=== PATIENT | female | born 1945 | race Caucasian/White ===

== ENCOUNTER 2020-04-11 14:14 | Emergency (ER) | payer MEDICARE, SELFPAY ==
[2020-04-11 14:15] VITALS: BP 131/77; PULSE 84; RESP 14; TEMP 36.3; O2SAT 96; BMI 26.3
[2020-04-11 14:44] VITALS: O2SAT 90; O2SAT 98
--- NOTE | 2020-04-11 14:50 | EKG12_ITS ---
Test Reason : SOB Blood Pressure : / mmHG Vent. Rate : 079 BPM Atrial Rate : 079 BPM P-R Int : 174 ms QRS Dur : 076 ms QT Int : 396 ms P-R-T Axes : 065 -12 003 degrees QTc Int : 454 ms Normal sinus rhythm Normal ECG Confirmed by REBEKA VANEGAS, JUAN ([id number]), supervising film or videotape editor NICHOLE CHEN ([id number]) on 04/16/2020 9:53:20 A M Referred By: TAMRA Confirmed By:LUCI STALEY MD
[2020-04-11 15:13] LABS: Absolute Lymphocyte Count 1.47 X10^3/uL (0.83-4.51); Absolute Neutrophil Count 7.1 X10^3/uL (2.0-7.7); Basophil# 0.06 X10^3/uL; Basophil% 0.6 % (0-1); Hematocrit 33.8 % (37-47); Hemoglobin 10.9 g/dL (12.0-15.0); Lymphocyte # 1.47 X10^3/ul (4.0); Lymphocyte % 14.3 % (19-41); Mean Corp Hgb Conc 32.2 g/dL (32-36); Mean Corpuscular Hgb 30.2 pg (27.0-32.0); Mean Corpuscular Volume 93.6 fL (81-99); Monocyte# 1.18 X10^3/uL; Monocyte% 11.5 % (0-10); NRBC Flagged by Analyzer 0 % (0-5); Neutrophil # 7.09 X10^3/uL (2.7-7.7); Neutrophil % 68.8 % (47-70); Platelet Count 426 K/mm3 (150-450); RBC Distribution Width CV 12.4 % (11.6-14.6); RBC Distribution Width SD 43.2 fl (35.1-43.9); Red Blood Count 3.61 M/mm3 (4.2-5.4); White Blood Count 10.3 K/mm3 (4.4-11.0)
--- NOTE | 2020-04-11 15:23 | ED.DCSUM_ITS ---
History of Present Illness <Fercho Juarez - Last Filed: 04/11/20 15:46> Informant: Patient Onset: Yesterday Activity at onset: Exertion, Light Activity, Rest Timing: Continuous Quality: Dyspnea on exertion Current Severity: Moderate Maximum Severity: Severe Worsened by: Exertion Relieved by: Oxygen Associated Symptoms: Clear sputum, Cough. Negative for: Bloody Sputum, Chills, Ear pain, Fever, Green sputum, Post-nasal drainage, Rhinorrhea, Sore throat, Sweats, White sputum, Yellow sputum Chest Pain: None Narrative: 74-year-old female history of diabetes and high blood pressure and high cholesterol and sleep apnea presents to the emergency department with shortness of breath. She has progressively gotten more short of breath over the last 3 days. She states that she was exposed to Covid about 3 weeks ago. She has not had a fever. She has not had chest pain or cough. No hemoptysis. No leg pain or swelling. No orthopnea. No paroxysmal nocturnal dyspnea. She has been checking her pulse ox at home and states today was 90% which prompted her visit to the emergency department. PE Risk Factors: Negative for: Cancer, OCP + Smoking + > 35, Prior DVT or PE, Recent immobilization, Recent surgery, Recent travel Prior similar symptoms: No Recent Illness/Hospitalization: No <Juan J Reeves - Last Filed: 04/11/20 16:42> Chief Complaint: Shortness of Breath Past Medical History <Fercho Juarez - Last Filed: 04/11/20 15:46> Prior records reviewed: Yes Past Medical History: - - HTN, HPL, LUPE, Surgical History: arthroscopy, knee Smoking Status: Unknown if ever smoked <Juan J Reeves - Last Filed: 04/11/20 16:42> - Allergies and Home Meds Allergies/Adverse Reactions: Allergies oxycodone Allergy (Verified 04/11/20 14:18) Rash Review of Systems All systems negative except as indicated General: Reports: Malaise. Denies: Chills, Fever, Sweats Eyes: Denies: Visual changes - bilaterally, Diplopia ENT: Denies: Rhinorrhea, Sore throat Cardiovascular: Denies: Chest pain, Palpitations Respiratory: Reports: Dyspnea, Cough, Sputum, Dyspnea on exertion. Denies: Orthopnea, Paroxysmal nocturnal dyspnea Gastrointestinal: Reports: Diarrhea. Denies: Abdominal pain, Nausea, Vomiting, Constipation, Melena, Hematochezia Genitourinary: Denies: Dysuria, Hematuria, Frequency Musculoskeletal: Denies: Back pain, Extremity Pain Skin: Denies: Rash, Wounds Neurological: Denies: Headache, Weakness, Numbness <Juan J Reeves - Last Filed: 04/11/20 16:42> Physical Exam Vital Signs/Narrative: Vital Signs Temp Pulse Resp BP Pulse Ox 04/11/20 14:44 98 04/11/20 14:15 97.4 F L 84 14 131/77 H 96 <Fercho Juarez - Last Filed: 04/11/20 15:46> Vital Signs/Narrative: Vital Signs Temp Pulse Resp BP Pulse Ox 04/11/20 14:44 98 04/11/20 14:15 97.4 F L 84 14 131/77 H 96 Inital Vital Signs reviewed: Yes General: Well nourished, Well developed, No Acute Distress Head: Normocephalic, Atraumatic Eyes: Perrl, EOMI ENT: Moist mucous membranes, No rhinorrhea Neck: Supple, Nontender Cardiovascular: Regular rate, Regular rhythm, No murmurs Respiratory: No distress, CTA bilaterally, Chest nontender Abdomen: Soft, Nontender, Nondistended, Normal bowel sounds Back: Nontender, Normal Inspection Extremities: Nontender, No edema Skin: Normal color, No rash Neurological: Alert, Oriented x3, Cranial nerves II-XII grossly intact, Normal Strength, Normal Sensation Psychological: Normal affect, Normal Mood <Juan J Reeves - Last Filed: 04/11/20 16:42> Diagnostic/Tx/Re-eval - Medical Decision Making 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 Patient complaining of shortness of breath and cough. She was exposed to someone with Covid about 3 weeks ago. Been having a cough and shortness of breath last several days. Recent travel, surgery or immobilization. No leg pain or swelling. No hemoptysis. She did have a prior PE when she was on hormone replacement th . Vital signs are stable and afebrile. Pulse ox is in the mid to high 90s. No hypoxia. HEENT exam unremarkable. Neck nontender no JVD. Lungs clear to auscultation bilaterally. Heart regular rhythm no murmur. Abdomen soft. Moving all 4 extremities. Calves nontender without edema or cords. Neurologically she is awake alert with no focal motor deficits. Labs basically unremarkable. She has mild renal insufficiency. She also has mild anemia. No old labs available for comparison. We checked both our system and the clinisync. Dust x-ray is consistent with a right sided infiltrate that could either be pneumonia or Covid. Patient clinically does look well. Currently lying in bed she is nonhypoxic. My concern is her age with the Covid. We are waiting for the Covid test. I will reevaluate her and walk her. <Fercho Juarez - Last Filed: 04/11/20 15:46> Chest X-Ray - ED: 1 View, Read by ED Physician, Read by Radiologist, Right Infiltrate, Left Infiltrate Impressions Chest X-Ray 04/11/20 15:25 IMPRESSION: Infiltration in the lateral aspect of the right upper lobe as well as in the right perihilar region. Subtle infiltrate is seen in the lateral aspect of the left mid lung. The right hilum appears to be enlarged. Correlation with a CT scan of the thorax is recommended if clinically indicated. Electronically Signed: Cabrera Toro, at 15:46 EST , Service support , 04/11/20 15:25 Chest 1 View (Portable) [RAD] Stat 04/11/20 15:50 CTA Chest W/WO Contrast [CT] Stat 04/11/20 14:55 Mucosa - Nose SARS-CoV-2 Antigen (Rapid) - Final Laboratory Results 04/11/20 04/11/20 14:55 14:55 WBC 10.3 RBC 3.61 L Hgb 10.9 L Hct 33.8 L MCV 93.6 MCH 30.2 MCHC 32.2 RDW Std Deviation 43.2 RDW Coeff of Flora 12.4 Plt Count 426 MPV 10.0 Immature Gran % (Auto) 3.800 H Neut % (Auto) 68.8 Lymph % (Auto) 14.3 L [place] % (Auto) 11.5 H Eos % (Auto) 1.0 Baso % (Auto) 0.6 Absolute Neuts (auto) 7.1 Absolute Lymphs (auto) 1.47 Nucleated RBC % 0 Sodium 134 L Potassium 4.1 Chloride 101 Carbon Dioxide 28.0 Anion Gap 5 BUN 23 H Creatinine 1.39 H Estim Creat Clear Calc 33.24 Est GFR (MDRD) Af Amer 48 L Est GFR (MDRD) Non-Af 39 L BUN/Creatinine Ratio 16.5 Glucose 91 Calcium 9.1 Troponin I < 0.015 - Rhythm Strip Rhythm Strip: Sinus Rhythm Rate: 88 Ectopy: None - EKG Initial EKG Interpretation: Sinus Rhythm, No Acute Injury Pattern Prior: No Prior Treatment - Dyspnea: Oxygen - Medical Decision Making Patient's chest x-ray demonstrated Infiltration in the lateral aspect of the right upper lobe as well as in the right perihilar region. Subtle infiltrate is seen in the lateral aspect of the left mid lung. The right hilum appears to be enlarged. Correlation with a CT scan of the thorax is recommended if clinically indicated. I went in to reevaluate the patient she is stable on 2 L of oxygen nasal cannula. Her rapid Covid was negative but we had a high suspicion therefore we did perform another test that was a PCR. This is pending. I discussed with her the findings of the x-ray and we ordered a CTA of the chest because she also has a history of a pulmonary embolism. Prior to the patient being taken over for the CT scan she informed me and the nurse that she would like to sign out AGAINST MEDICAL ADVICE and leave. She states that she feels improved she does not want to be admitted to the hospital she does not want the CT scan and would like to be discharged. We did start her on Levaquin for her pneumonia she was given her first dose in the ED and I will write her prescription. I explained to her the risks and benefits of this decision and I was concerned for her again as she may have Covid, and/or pneumonia. She is requiring oxygen. We took her off the nasal cannula she is at 90% she has the capacity to sign out AGAINST MEDICAL ADVICE and she understands the risks. <Juan J Reeves - Last Filed: 04/11/20 16:42> ED Disposition <Fercho Juarez - Last Filed: 04/11/20 15:46> <Juan J Reeves - Last Filed: 04/11/20 16:42> - Plan for ED Patient: Disposition: Against Medical Advice Diagnosis: Pneumonia Instructions: ED Pneumonia (Adult) Prescriptions: levoFLOXacin tablet [Levaquin tablet] 750 mg PO DAILY #7 tab Prescription Printed Ondansetron [Zofran Odt] 4 mg PO Q8H PRN PRN #10 tab PRN Reason: Nausea Prescription Printed Referrals: ANKUSH COOPER [Other] - As soon as possible
--- NOTE | 2020-04-11 15:25 | RAD_ITS ---
STUDY: X-RAY CHEST REASON FOR EXAM: Female, 74 years old. SOB and amp; COUGH X1 MONTH. TECHNIQUE: Single AP portable view of the chest. COMPARISON: None. FINDINGS: EKG electrodes are seen. Focal infiltrate is seen in the peripheral lateral aspect of the right upper lobe. A focal infiltrate is also seen in the right perihilar region as well as in the mid lateral portion of the left lung. There is no demonstrated pleural abnormality. Normal size heart. Questionable enlargement of the right hilum. Normal visualized pulmonary arteries. Normal visualized aortic arch and descending thoracic aorta. Normal visualized thoracic spine. Normal visualized ribs, clavicles, and shoulders. There is no demonstrated abnormality of the visualized soft tissue structures of the upper abdomen. RAD/Chest 1 View (Portable) IMPRESSION: Infiltration in the lateral aspect of the right upper lobe as well as in the right perihilar region. Subtle infiltrate is seen in the lateral aspect of the left mid lung. The right hilum appears to be enlarged. Correlation with a CT scan of the thorax is recommended if clinically indicated. Electronically Signed: Cabrera Engel, at 15:46 EST , Service support ,
[2020-04-11 15:32] LABS: Anion Gap 5 (5-15); BUN 23 mg/dL (7-18); BUN/Creat Ratio 16.5 RATIO (10-20); Calcium,Total 9.1 mg/dL (8.5-10.1); Chloride 101 mmol/L (98-107); Creatinine, Serum 1.39 mg/dL (0.55-1.02); EST Glomerular Filtration Rate 39 mL/min (>60); Est Glom Filt Rate - Afr Amer 48 mL/min (>60); Estimated Creatinine Clearance 33.24 ml/min; Glucose 91 mg/dL (74-106); Potassium 4.1 mmol/L (3.5-5.1); Sodium Level 134 mmol/L (136-145)
[2020-04-11 16:15] VITALS: BP 120/97; PULSE 78; RESP 18; TEMP 36.8; O2SAT 94
[2020-04-11] MEDS: 0.9% Normal Saline 1,000 ML 999 ML IV (16:18)
[2020-04-11] MEDS: levoFLOXacin 750 MG Tablet PO (16:48)
[2020-04-11 16:49] VITALS: PULSE 78; RESP 18; O2SAT 96
== END 2020-04-11 16:53 | disposition left against medical advice (07) ==
PROVIDERS: Emergency Provider Physician Assistant Medical
DX: J18.9 Pneumonia, unspecified organism (principal)
CPT/HCPCS: 71045; 80048; 84484; 85025; 87426; 87635; 93005; 99285; J7040; A4216; U0002

== ENCOUNTER → 2020-07-23 13:26 | Outpatient (CLI) | payer MEDICARE, SELFPAY ==
--- NOTE | 2020-07-23 13:47 | ECHOD_ITS ---
Reason For Study: Systolic murmur Procedure This was a 2D Doppler, Color Flow transthoracic echocardiogram. The exam was of adequate technical quality. Exam performed in department. Left Ventricle Normal LV size. Apical false tendon noted. Left ventricular systolic function is normal. The estimated ejection fraction is 65 %. Diastolic function is indeterminate. No regional wall motion abnormalities noted. Right Ventricle Normal RV size. Normal systolic function. Atria The left atrium is moderately enlarged. Normal right atrium. No doppler evidence for ASD. Mitral Valve There is mild to moderate mitral annular calcification. Extension of the mitral annular calcification onto the base of the posterior mitral valve leaflet. Moderate (2+) eccentric mitral valve insufficiency. Tricuspid Valve Normal tricuspid valve. Mild tricuspid valve insufficiency. Right ventricular systolic pressure estimated to be 27 mmHg. Aortic Valve Trisinus/trileaflet aortic valve. Mild diffuse aortic valve thickening. Moderate focal aortic valve calcification. Mild aortic stenosis. Pulmonic Valve The pulmonic valve is not well visualized. Trivial pulmonic valve insufficiency. Great Vessels Normal sized aortic root. Calcified aortic root. Pericardium/Pleural No pericardial effusion. MMode/2D Measurements & Calculations LVIDd: 3.6 cm IVSd: 1.2 cm LVOT diam: 2.0 cm LVIDs: 2.3 cm LVPWd: 1.1 cm LVOT area: 3.2 cm2 RVDd: 3.2 cm FS: 34.2 % Ao root diam: 2.8 cm LAV(MOD-bp): 52.5 ml LA A4 area: 19.3 cm2 LAV(MOD-bp) Indexed: 28.3 ml/m2 LAV(MOD-sp2): 46.2 ml LAV(MOD-sp4): 55.5 ml LA dimension(2D): 3.3 cm RA A4 area: 12.7 cm2 Doppler Measurements & Calculations MV E max joce: 82.6 cm/sec Lat Peak E' Joce: 6.1 cm/sec Med Peak E' Joce: 3.6 cm/sec MV A max joce: 104.7 cm/sec E/E' lat: 13.4 E/E' med: 22.8 MV E/A: 0.79 Ao V2 max: 233.3 cm/sec LV V1 max: 108.4 cm/sec SV(LVOT): 63.6 ml Ao max P.9 mmHg LV V1 max P.7 mmHg Ao V2 mean: 156.4 cm/sec LV V1 mean P.3 mmHg Ao mean P.0 mmHg LV V1 mean: 71.7 cm/sec Ao V2 VTI: 42.4 cm LV V1 VTI: 20.1 cm HAMILTON(I,D): 1.5 cm2 HAMILTON(V,D): 1.5 cm2 PA V2 max: 112.5 cm/sec TR max joce: 246.4 cm/sec TR max P.3 mmHg ECHO/Echo Complete Interpretation Summary Left ventricular systolic function is normal. The estimated ejection fraction is 65 %. Apical false tendon noted. The left atrium is moderately enlarged. There is mild to moderate mitral annular calcification. Extension of the mitral annular calcification onto the base of the posterior mi tral valve leaflet. Moderate (2+) eccentric mitral valve insufficiency. Mild tricuspid valve insufficiency. Mild aortic stenosis. Trivial pulmonic valve insufficiency. Calcified aortic root. Right ventricular systolic pressure estimated to be 27 mmHg. Diastolic function is indeterminate. Ordering Physician: ANKUSH COOPER Referring Physician: ANKUSH COOPER Performed By: Monique Vaz RDCS
[2020-07-23 14:18] LABS: Hematocrit 38.8 % (37-47); Hemoglobin 12.6 g/dL (12.0-15.0); Mean Corp Hgb Conc 32.5 g/dL (32-36); Mean Corpuscular Hgb 31.1 pg (27.0-32.0); Mean Corpuscular Volume 95.8 fL (81-99); Platelet Count 315 K/mm3 (150-450); RBC Distribution Width SD 45.6 fl (35.1-43.9); Red Blood Count 4.05 M/mm3 (4.2-5.4); White Blood Count 6.8 K/mm3 (4.4-11.0)
[2020-07-23 14:47] LABS: ALB/GLOB Ratio 0.9 RATIO (0.9-2.4); AST(SGOT) 16 U/L (15-37); Alanine Aminotransfer ALT/SGPT 22 U/L (13-56); Albumin, Serum 3.5 g/dL (3.2-5.0); Alkaline Phosphatase 99 U/L (45-117); Anion Gap 5 (5-15); BUN 28 mg/dL (7-18); BUN/Creat Ratio 20.1 RATIO (10-20); Calcium,Total 9.3 mg/dL (8.5-10.1); Chloride 100 mmol/L (98-107); Creatinine, Serum 1.39 mg/dL (0.55-1.02); EST Glomerular Filtration Rate 39 mL/min (>60); Est Glom Filt Rate - Afr Amer 48 mL/min (>60); Glucose 130 mg/dL (74-106); Phosphorus 4.2 mg/dL (2.5-4.9); Potassium 3.7 mmol/L (3.5-5.1); Protein, Total 7.5 g/dL (6.4-8.2); Sodium Level 135 mmol/L (136-145)
--- NOTE | 2020-07-23 14:47 | BI_ITS ---
MAMMOGRAPHY - BILATERAL SCREENING REASON FOR EXAM: Female, 74 years old. Routine annual screening examination. PERTINENT HISTORY: Non-contributory. TECHNIQUE: Digital bilateral breast jamey (3D mammographic acquisition) in the CC and MLO projections. 2-D mediolateral oblique (MLO) and craniocaudad (CC) views of both breasts were obtained. CAD: Full Field Digital Mammography with Computer Added Detection was performed. COMPARISON: Comparison is made with prior abdomen examination dated 08/30/2017. FINDINGS: Breast Composition: The breasts are heterogeneously dense, which may obscure small masses. There are no dominant masses or suspicious calcifications. Stable benign-appearing bilateral axillary lymph nodes. No other significant abnormalities are identified. There has been no significant change since the prior study. BI/SCRN MAMM (CAD)W/JAMEY BILAT IMPRESSION: Stable bilateral screening mammogram. Yearly follow-up mammogram recommended. (A) ASSESSMENT CATEGORY: BIRADS Category 2: Benign. A letter regarding these results will be sent to the patient by the facility within 30 days. Approximately 10% of breast cancers are not detected by mammography. A normal mammogram should not delay biopsy of a clinically suspicious abnormality. [id number] Electronically Signed: Cabrera Engel MD at 8:30 EDT , Service support ,
[2020-07-23 15:01] LABS: PTHIN 131.9 pg/mL (18.4-80.1)
[2020-07-23 15:05] LABS: Vitamin D,25 Hydroxy 38.4 ng/mL
== END ==
DX: I38 Endocarditis, valve unspecified (principal); I12.9 Hypertensive chronic kidney disease with stage 1 through stage 4 chronic kidney disease, or unspecified chronic kidney disease; N18.32 Chronic kidney disease, stage 3b; Z12.31 Encounter for screening mammogram for malignant neoplasm of breast
CPT/HCPCS: 36415; 77063; 77067; 80053; 82306; 83970; 84100; 85027; 93306

== ENCOUNTER 2023-09-26 14:36 | Emergency (ER) | payer MEDICARE, SELFPAY ==
[2023-09-26 14:37] VITALS: BP 118/79; PULSE 130; RESP 16; TEMP 37.1; O2SAT 94
[2023-09-26 14:39] VITALS: BMI 23.3
--- NOTE | 2023-09-26 14:55 | CT_ITS ---
STUDY: CT BRAIN WITHOUT CONTRAST REASON FOR EXAM: Female, 77 years old. One week history of headaches, dizziness and blurred vision. RADIATION DOSAGE (If Supplied By Facility): CTDIvol = ( 44.99 ) mGy, DLP = ( 796.11 ) mGycm TECHNIQUE: Transaxial CT imaging of the brain was performed without administration of intravenous contrast material. Individualized dose optimization techniques were used for this CT. COMPARISON: No relevant priors. FINDINGS: Normal soft tissue structures. Normal calvarium. There is mild cerebral atrophy with widening of the extra-axial spaces and ventricular dilatation. There are areas of decreased attenuation within the white matter tracts of the supratentorial brain, consistent with microvascular disease changes. There is evidence of encephalomalacia in the posterior medial aspect of the right occipital lobe infarct with old infarction. Old lacunar infarct in the right basal ganglion. Normal brainstem. Normal cerebellum. There is no intracranial hemorrhage. There are no findings of an acute ischemic infarction. Atherosclerotic calcification of the cavernous portions of the internal carotid arteries and vertebral arteries bilaterally. Normal visualized paranasal sinuses. CT/Brain/Head without Contrast IMPRESSION: Chronic involutional changes of the brain. Findings suggestive of encephalomalacia in the posterior medial aspect of the right occipital lobe as well as old lacunar infarct in the right basal ganglia. Electronically Signed: Cabrera Engel MD at 15:27 EDT ,
--- NOTE | 2023-09-26 15:03 | EDS_ITS ---
HPI History of Present Illness Chief Complaint: Headache Narrative Narrative: 77-year-old female past medical history of atrial fibrillation, on Eliquis presents with headache on the left side of her head that she has had for the last week. She relates history that she had a fall 3 weeks ago, but no loss of consciousness. Over the last week, she has had left-sided headache. States it started in the back of her neck, then spread forward. No fevers or chills, no associated nausea or vomiting. Yesterday, she developed a rash on her scalp and forehead. She denies any loss of vision or blurry vision, no other symptoms. No exacerbating or alleviating factors. She took tramadol which he usually takes for arthritis and Tylenol, without relief of her symptoms. PFSH PFS Home Medications ?Medication ?Instructions ?Recorded ?Last Taken ?Type levofloxacin 750 mg tablet 750 mg PO DAILY #7 tabs 04/11/20 Unknown Rx ondansetron 4 mg disintegrating 4 mg PO Q8H PRN PRN Nausea #10 tabs 04/11/20 Unknown Rx tablet Hydrocortisone 2.5%/lidocaine 5% #30 ea 08/11/21 Unknown Rx suppository (cmpd) acyclovir 800 mg tablet 800 mg PO 5X/DAY 7 days #35 TABLETS 09/26/23 Unknown Rx gabapentin 100 mg capsule 100 mg PO TID 7 days #21 caps 09/26/23 Unknown Rx Allergy/AdvReac Type Severity Reaction Status Date / Time oxycodone Allergy Rash Verified 08/11/21 13:23 Family History Aunt Cancer stomach Mother Hypertension Surgical History History of hysterectomy History of total right knee replacement History of lumpectomy Social History Smoking Status: Unknown if ever smoked alcohol intake: never substance use type: does not use ROS ROS ED ROS Narrative Constitutional: No fever, no chills. HEENT: No sore throat. No neck pain. No loss of vision. No rhinorrhea. Cardiovascular: No chest pain. No palpitations. No pedal edema. Respiratory: No cough, no shortness of breath. Abdominal: No abdominal pain. No nausea. No vomiting. Genitourinary: No dysuria. No hematuria. Musculoskeletal: No myalgias. No arthralgias. Neurologic: Left-sided headaches. No dizziness. No lightheadedness. Skin: Yesterday developed left forehead, painful, raised rash. No change in color. Psychiatric: No depression. No anxiety. EXAM Physical Exam Narrative Exam Narrative: Afebrile. Vital signs noted. HEENT: Normocephalic. Atraumatic. PERRL, EOMI. Neck soft and supple. No point tenderness or step off. Cardiovascular: Regular rate and rhythm intermittent tachycardia. No murmurs, rubs, or gallops appreciated. Respiratory: No tachypnea. Lungs clear to auscultation bilaterally. Gastrointestinal: Abdomen soft, nontender, with normoactive bowel sounds. No rebound or guarding. Neurological: Awake. Alert. Nonfocal, nonlateralizing. Skin: Positive maculopapular/vesicular rash distribution of V1, and on scalp. No lesion on tip of nose. Normal color. No pallor. Musculoskeletal: No pedal edema. Full range of motion extremities. Const Vital Signs: 09/26/23 14:37 Temperature 98.8 F Temperature Source Temporal Pulse Rate 130 H Respiratory Rate 16 Blood Pressure 118/79 Blood Pressure Mean 92 Pulse Ox 94 MDM MDM MDM Narrative Medical decision making narrative: In the differential diagnosis is subdural hematoma versus intracranial hemorrhage versus shingles. I do feel that given the remote nature of her fall, that there is low suspicion for intracranial hemorrhage that is active and she has had a headache for a week. I do think it is probably more of a prodromal type symptoms and she developed a rash yesterday. I do feel she needs antivirals and gabapentin. I did discuss the possibility of postherpetic neuralgia with her. She has an allergy to oxycodone where she develops a rash so she can continue her tramadol for pain. I do feel CT imaging should be obtained given her age and she does not have headaches and she has history of a fall on blood thinner. I reviewed the radiology report of the CT of the brain which shows chronic involutional changes, but no acute process, no hemorrhage. At this point in time, given her rash and continued pain, I wrote her prescriptions for acyclovir to take 5 times a day for the next week along with gabapentin 100 mg to take 3 times a day dispense #21. She will follow-up with her primary care provider and continue her tramadol. I feel she can be discharged safely home with follow-up. Return instructions to the emergency department were reviewed. Disposition is discharged home in stable condition. History & Record Review Discussion w/independent historian: Patient Radiography Diagnostic Testing: Clinical Impression(s) from Imaging Studies Brain CT 09/26/23 14:55 IMPRESSION: Chronic involutional changes of the brain. Findings suggestive of encephalomalacia in the posterior medial aspect of the right occipital lobe as well as old lacunar infarct in the right basal ganglia. Electronically Signed: Cabrera Engel MD at 15:27 EDT , Discharge Plan Triage Chief Complaint: Headache ED Provider: Tadeo Sparks Dx/Rx/DC Orders Clinical Impression: Shingles, Headache Instructions: ED Headache Unspecified, ED Shingles (Herpes Zoster) Prescriptions: New gabapentin 100 mg capsule 100 mg PO TID 7 Days Qty: 21 0RF acyclovir 800 mg tablet 800 mg PO 5X/DAY 7 Days Qty: 35 0RF No Action (DME) Hydrocortisone 2.5%/lidocaine 5% suppository (cmpd) Suppository See Rx Instructions .ROUTE .MEDSUPPLY Qty: 30 1RF Rx Instructions: As directed levofloxacin 750 MG tablet 750 mg PO DAILY Qty: 7 0RF ondansetron 4 MG tablet 4 mg PO Q8H PRN PRN (Reason: Nausea) Qty: 10 0RF Activity Restrictions/Additional Instructions: Continue your tramadol as needed for pain. Take all of your acyclovir as directed. Take the gabapentin as well. Follow-up with your primary care provider in approximately 1 week. Print Language: Mauritanian Disposition Disposition: Home, Self Care
[2023-09-26] MEDS: Acyclovir 800 MG Tablet PO (15:41)
[2023-09-26] MEDS: Gabapentin 100 MG Capsule PO (15:41)
[2023-09-26 16:00] VITALS: BP 122/80; PULSE 98; RESP 16; TEMP 36.8; O2SAT 96
== END 2023-09-26 16:13 | disposition home or self-care (01) ==
PROVIDERS: Emergency Provider Emergency Medicine; Visit Provider Emergency Medicine
DX: B02.9 Zoster without complications (principal); I48.91 Unspecified atrial fibrillation; R51.9 Headache, unspecified; Z79.01 Long term (current) use of anticoagulants
CPT/HCPCS: 70450; 99284; A4216

== ENCOUNTER 2023-10-22 13:57 | Emergency (ER) | payer MEDICARE, SELFPAY ==
[2023-10-22 13:57] VITALS: BP 124/66; PULSE 52; RESP 16; TEMP 36.7; O2SAT 98; BMI 25.8
--- NOTE | 2023-10-22 14:03 | EX.ED.DYSGE1 ---
HPI <BONY Jones - Last Filed: 10/22/23 15:53> History of Present Illness Chief Complaint: Rash Narrative Narrative: Patient is a 77-year-old female with history of hypertension, acid reflux, who presents to the emergency department for ongoing shingles. Patient states that early September she came to the emergency department. Patient had shingles to her left side of her face. She did not receive any vaccinations. Patient was placed on L psych Marcela, steroids, and states that she went to her PCP who told her to go to the emergency department because they are not improving. Patient dates that the left side of her face is doing better. Patient does still have oozing and pain to the left upper scalp. Patient states that there is improvement around her eye. Denies any nausea or vomiting. Patient does state to have some intermittent fever and chills. PFSH <BONY Jones - Last Filed: 10/22/23 15:53> [facility] Medical History (Updated 10/22/23 @ 15:[address] Garland Murphy, DO) Shingles Home Medications ?Medication ?Instructions ?Recorded ?Last Taken ?Type levofloxacin 750 mg tablet 750 mg PO DAILY #7 tabs 04/11/20 Unknown Rx ondansetron 4 mg disintegrating 4 mg PO Q8H PRN PRN Nausea #10 tabs 04/11/20 Unknown Rx tablet Hydrocortisone 2.5%/lidocaine 5% #30 ea 08/11/21 Unknown Rx suppository (cmpd) acyclovir 800 mg tablet 800 mg PO 5X/DAY 7 days #35 TABLETS 09/26/23 Unknown Rx gabapentin 100 mg capsule 100 mg PO TID 7 days #21 caps 09/26/23 Unknown Rx tramadol 50 mg tablet 50 mg PO Q4H PRN PRN Pain #14 tabs 10/22/23 Unknown Rx Allergy/AdvReac Type Severity Reaction Status Date / Time oxycodone Allergy Rash Verified 10/22/23 13:59 hydrocodone AdvReac Intermediate itching Verified 10/22/23 14:17 Family History Aunt Cancer stomach Mother Hypertension Surgical History History of hysterectomy History of total right knee replacement History of lumpectomy Social History Smoking Status: Former smoker alcohol intake: never substance use type: does not use ROS <BONY Jones - Last Filed: 10/22/23 15:53> ROS ED ROS Narrative Constitutional: Negative for weight loss, weakness. Positive fever and chills Eyes: Negative for vision loss, vision change, double vision ENT: Negative for any sore throat, ear pain, congestion Cardiovascular: Negative for any chest pain, tightness, palpitations Respiratory: Negative for any cough, sputum production, hemoptysis, dyspnea, dyspnea on exertion, orthopnea Gastrointestinal: Negative for any abdominal pain, nausea, vomiting, diarrhea, constipation, blood in stool, blood in vomit : Negative for any urinary frequency, dysuria, retention, blood in urine Muscle skeletal: Negative for any neck pain, back pain Neurological: Negative for any headache, syncope, dizziness Skin: Negative for any itching, abrasions, lacerations. Positive for herpetic lesions to the left forehead, left side of her scalp Psychiatric: Negative for any depression, anxiety, stress, suicidal ideation, homicidal ideation Hematologic: Negative for any excessive bruising, easy bleeding EXAM <BONY Jones - Last Filed: 10/22/23 15:53> Physical Exam Narrative Exam Narrative: Vital signs reviewed. HEET: Head normocephalic atraumatic, TMs clear bilaterally. Posterior pharynx is clear, moist mucous membranes. Nares clear bilaterally. Pupils are equal round reactive to light. Patient does have slight erythema to the left upper eyelid, patient does have more pronounced lesions to the left upper forehead, left frontal scalp. There appears to be slight redness, there is continued oozing as well as pain. There is pain on palpation. Pupils are equal round reactive light. No evidence of any orbital cellulitis. On my examination, there is some erythema around the lesions however there is some crusting, I do not appreciate any fluctuance. Neck: Supple with no lymphadenopathy or tenderness. No signs of meningismus. Cardiac: Regular rate and rhythm no murmurs gallops or rubs, equal peripheral pulses bilaterally. Respiratory: Lungs clear to auscultation bilaterally. No chest tenderness. Abdomen: Soft, nontender, nondistended. No abdominal bruit or pulsatile masses. No hepatosplenomegaly Extremities: No peripheral edema, no signs of gross trauma or deformity. Skin: Clean dry and intact with no rash, purpura, petechiae, vesicles or pustules. Backs/flank: No CVA tenderness, no midline spinal tenderness, no deformity. Psych: Normal mood and affect. No SI, HI or acute psychosis. Const Vital Signs: 10/22/23 13:57 Temperature 98.1 F Temperature Source Temporal Pulse Rate 52 L Respiratory Rate 16 Blood Pressure 124/66 H Blood Pressure Mean 85 Pulse Ox 98 Oxygen Delivery Method Room Air Positive well nourished and well developed General Appearance ED: well developed <Dr. Garland Murphy DO - Last Filed: 10/22/23 15:13> Physical Exam Const Vital Signs: 10/22/23 13:57 Temperature 98.1 F Temperature Source Temporal Pulse Rate 52 L Respiratory Rate 16 Blood Pressure 124/66 H Blood Pressure Mean 85 Pulse Ox 98 Oxygen Delivery Method Room Air MDM <BONY Jones - Last Filed: 10/22/23 15:53> MDM Lab Data Labs: Laboratory Results - last 24 hr 10/22/23 14:40 WBC 17.7 H RBC 4.62 Hgb 14.3 Hct 42.7 MCV 92.4 MCH 31.0 MCHC 33.5 RDW Std Deviation 44.5 H RDW Coeff of Flora 13.1 Plt Count 297 MPV 10.0 Immature Gran % (Auto) 4.500 H Neut % (Auto) 65.4 Lymph % (Auto) 18.7 L Childress % (Auto) 10.6 H Eos % (Auto) 0.5 Baso % (Auto) 0.3 Absolute Neuts (auto) 11.5 H Absolute Lymphs (auto) 3.30 Nucleated RBC % 0 Diff Path Review May foll Hypersegmented Neuts 1+ H Sodium 137 Potassium 3.7 Chloride 98 Carbon Dioxide 32.0 Anion Gap 7 BUN 35 H Creatinine 1.30 H Estim Creat Clear Calc 36.96 Est GFR (MDRD) Af Amer 51 L Est GFR (MDRD) Non-Af 42 L BUN/Creatinine Ratio 26.9 H Glucose 114 H Calcium 9.8 Treatment and Re-Evaluation :: Differential diagnosis includes however is not limited to: Herpes meningitis, herpetic syndrome, herpetic rash pain, orbital cellulitis, cellulitis Patient appears to be in no obvious distress vital signs are stable. Patient presents to the emergency department for concern of ongoing pain to the left side of her face, head, secondary to the shingles. On my examination of these do look to be old, there is some surrounding redness. There is no oozing on my examination. Patient has no red flag signs such as orbital cellulitis, herpetic meningitis. Patient received some basic laboratory values as well as some IV fluids, Zofran and pain medicine. Will be reevaluated. Patient's CBC shows a leukocytosis of 17.7, however patient has been on prednisone. Chemistry showed creatinine 1.3, this is baseline for the patient. GFR 42, glucose is within normal limits. Patient on reevaluation did feel better. At this time, do not believe the patient needs admitted to the hospital. Patient will be sent home with tramadol, she will continue her daily medication regimen. There is no evidence of acute herpetic lesions, these are all crusting over, these appears to be healing. She instructed return for any worsening symptoms. Stable for discharge. I have personally performed a face to face assessment of the patient and have reviewed the RIZWAN Note. I performed a substantive portion of the visit including all aspects of the following. My agudelo findings include: History is 77-year-old female with groin shingles. Patient is currently on prednisone. She is already completed a course of acyclovir and gabapentin. She states that she is having subjective fevers. By this she means that she gets hot and cold. Has not taken her temperature at all. She states that she gets new lesions every day. However she cannot point to any new lesions. She notes continued pain. She notes that her eye was swollen shut but is no longer. She states that her left eye is blurry.* states that she has complained blurry vision since cataract patient. Patient denies any redness to the eye. Patient denies any nausea no pain in the ear. Exam is there are crusted over lesions in the V1 distribution right ear the eye exam appears normal. The anterior chamber is quiet. There is no injection. No lesions intraorbital or on the tip of the nose. I see no new lesions or areas concerning for cellulitis. Medical Decison Making basic blood work will be checked. While she does complain of a headache she describes it as frontal on the left. She has no photophobia no stiff neck no generalized head pain. I do not believe that the patient needs a lumbar puncture. I feel the risk-benefit ratio is low. I believe the patient has postherpetic neuralgia. We can provide analgesia. <Dr. Garland Murphy, DO - Last Filed: 10/22/23 15:13> [facility] History & Record Review Discussion w/independent historian: Patient Lab Data Attestation: I reviewed the patient's lab results. Labs: Laboratory Results - last 24 hr 10/22/23 14:40 WBC 17.7 H RBC 4.62 Hgb 14.3 Hct 42.7 MCV 92.4 MCH 31.0 MCHC 33.5 RDW Std Deviation 44.5 H RDW Coeff of Flora 13.1 Plt Count 297 MPV 10.0 Immature Gran % (Auto) 4.500 H Neut % (Auto) 65.4 Lymph % (Auto) 18.7 L Childress % (Auto) 10.6 H Eos % (Auto) 0.5 Baso % (Auto) 0.3 Absolute Neuts (auto) 11.5 H Absolute Lymphs (auto) 3.30 Nucleated RBC % 0 Diff Path Review May foll Hypersegmented Neuts 1+ H Sodium 137 Potassium 3.7 Chloride 98 Carbon Dioxide 32.0 Anion Gap 7 BUN 35 H Creatinine 1.30 H Estim Creat Clear Calc 36.96 Est GFR (MDRD) Af Amer 51 L Est GFR (MDRD) Non-Af 42 L BUN/Creatinine Ratio 26.9 H Glucose 114 H Calcium 9.8 Treatment and Re-Evaluation :: Differential diagnosis includes however is not limited to: Herpes meningitis, herpetic syndrome, herpetic rash pain, orbital cellulitis, cellulitis Patient appears to be in no obvious distress vital signs are stable. Patient presents to the emergency department for concern of ongoing pain to the left side of her face, head, secondary to the shingles. On my examination of these do look to be old, there is some surrounding redness. There is no oozing on my examination. Patient has no red flag signs such as orbital cellulitis, herpetic meningitis. Patient received some basic laboratory values as well as some IV fluids, Zofran and pain medicine. Will be reevaluated. I have personally performed a face to face assessment of the patient and have reviewed the RIZWAN Note. I performed a substantive portion of the visit including all aspects of the following. My agudelo findings include: History is 77-year-old female with groin shingles. Patient is currently on prednisone. She is already completed a course of acyclovir and gabapentin. She states that she is having subjective fevers. By this she means that she gets hot and cold. Has not taken her temperature at all. She states that she gets new lesions every day. However she cannot point to any new lesions. She notes continued pain. She notes that her eye was swollen shut but is no longer. She states that her left eye is blurry.* states that she has complained blurry vision since cataract patient. Patient denies any redness to the eye. Patient denies any nausea no pain in the ear. Exam is there are crusted over lesions in the V1 distribution right ear the eye exam appears normal. The anterior chamber is quiet. There is no injection. No lesions intraorbital or on the tip of the nose. I see no new lesions or areas concerning for cellulitis. Medical Decison Making basic blood work will be checked. While she does complain of a headache she describes it as frontal on the left. She has no photophobia no stiff neck no generalized head pain. I do not believe that the patient needs a lumbar puncture. I feel the risk-benefit ratio is low. I believe the patient has postherpetic neuralgia. We can provide analgesia. Discharge Plan Triage Chief Complaint: Rash ED Midlevel Provider: Silvino Vargas ED Provider: Garland Murphy Dx/Rx/DC Orders Clinical Impression: Post herpetic neuralgia Instructions: Shingles (Herpes Zoster) Prescriptions: New tramadol 50 mg tablet 50 mg PO Q4H PRN PRN (Reason: Pain) Qty: 14 0RF No Action (DME) Hydrocortisone 2.5%/lidocaine 5% suppository (cmpd) Suppository See Rx Instructions .ROUTE .MEDSUPPLY Qty: 30 1RF Rx Instructions: As directed levofloxacin 750 MG tablet 750 mg PO DAILY Qty: 7 0RF ondansetron 4 MG tablet 4 mg PO Q8H PRN PRN (Reason: Nausea) Qty: 10 0RF gabapentin 100 mg capsule 100 mg PO TID 7 Days Qty: 21 0RF acyclovir 800 mg tablet 800 mg PO 5X/DAY 7 Days Qty: 35 0RF Primary Care Provider: ANKUSH COOPER Referrals: ANKUSH COOPER [Other] - 3-5 Days Activity Restrictions/Additional Instructions: Please continue taking the pain medicine. Return for any worsening symptoms. Print Language: Lithuanian Disposition Disposition: Home, Self Care
[2023-10-22] MEDS: Ondansetron 4 MG/2 ML Vial IV (14:30)
[2023-10-22] MEDS: Morphine 2 MG/ML Syringe IV (14:30)
[2023-10-22] MEDS: 0.9% Normal Saline (1000mL) 1,000 ML 999 ML IV (14:35)
[2023-10-22 14:46] LABS: Absolute Neutrophil Count 11.5 X10^3/uL (2.0-7.7); Basophil# 0.06 X10^3/uL; Basophil% 0.3 % (0-1); Eosinophil# 0.09 X10^3/uL; Eosinophils% 0.5 % (0-5); Hematocrit 42.7 % (37-47); Hemoglobin 14.3 g/dL (12.0-15.0); Lymphocyte % 18.7 % (19-41); Mean Corp Hgb Conc 33.5 g/dL (32-36); Mean Corpuscular Volume 92.4 fL (81-99); Monocyte# 1.88 X10^3/uL; Monocyte% 10.6 % (0-10); NRBC Flagged by Analyzer 0 % (0-5); Neutrophil # 11.53 X10^3/uL (2.7-7.7); Neutrophil % 65.4 % (47-70); POSITIVE DIFFERENTIAL YES; Platelet Count 297 K/mm3 (150-450); RBC Distribution Width CV 13.1 % (11.6-14.6); RBC Distribution Width SD 44.5 fl (35.1-43.9); Red Blood Count 4.62 M/mm3 (4.2-5.4); White Blood Count 17.7 K/mm3 (4.4-11.0)
[2023-10-22 14:47] LABS: Differential Indicated SCAN CRITERIA MET
[2023-10-22 15:00] LABS: Anion Gap 7 (5-15); BUN 35 mg/dL (7-18); BUN/Creat Ratio 26.9 RATIO (10-20); Calcium,Total 9.8 mg/dL (8.5-10.1); Chloride 98 mmol/L (98-107); EST Glomerular Filtration Rate 42 mL/min (>60); Est Glom Filt Rate - Afr Amer 51 mL/min (>60); Estimated Creatinine Clearance 36.96 ml/min; Glucose 114 mg/dL (74-106); Potassium 3.7 mmol/L (3.5-5.1); Sodium Level 137 mmol/L (136-145)
[2023-10-22 15:11] LABS: Hypersegmented Neutrophils 1+
[2023-10-24 15:27] LABS: Pathologist Review Reviewed
== END 2023-10-22 15:59 | disposition home or self-care (01) ==
PROVIDERS: Nurse Practitioner; Emergency Provider Emergency Medicine; Visit Provider Emergency Medicine
DX: G58.8 Other specified mononeuropathies (principal); Z87.891 Personal history of nicotine dependence
CPT/HCPCS: 80048; 85025; 96374; 96375; 99283; J7030; A4216; J2405

== ENCOUNTER → 2024-08-07 | Outpatient (CLI) | payer MEDICARE, SELFPAY ==
[2024-08-07 11:20] LABS: Absolute Neutrophil Count 5.9 X10^3/uL (2.0-7.7); Basophil# 0.07 X10^3/uL; Basophil% 0.8 % (0-1); Eosinophil# 0.21 X10^3/uL; Eosinophils% 2.3 % (0-5); Hematocrit 39.3 % (37-47); Hemoglobin 13.1 g/dL (12.0-15.0); Lymphocyte % 21.9 % (19-41); Mean Corp Hgb Conc 33.3 g/dL (32-36); Mean Corpuscular Hgb 31.6 pg (27.0-32.0); Mean Corpuscular Volume 94.7 fL (81-99); Monocyte# 0.87 X10^3/uL; Monocyte% 9.5 % (0-10); NRBC Flagged by Analyzer 0 % (0-5); Neutrophil # 5.85 X10^3/uL (2.7-7.7); Neutrophil % 64.2 % (47-70); Platelet Count 257 K/mm3 (150-450); RBC Distribution Width CV 12.1 % (11.6-14.6); Red Blood Count 4.15 M/mm3 (4.2-5.4); White Blood Count 9.1 K/mm3 (4.4-11.0)
[2024-08-07 12:01] LABS: PTHIN 80 pg/mL (11-61)
[2024-08-07 12:07] LABS: Albumin, Serum 3.9 g/dL (3.4-4.8); Anion Gap 12 (5-15); BUN 27 mg/dL (4-19); BUN/Creat Ratio 21.2 RATIO (10-20); Calcium,Total 9.4 mg/dL (7.6-11.0); Carbon Dioxide 25.1 mmol/L (21.0-32.0); Chloride 98 mmol/L (98-108); Creatinine, Serum 1.27 mg/dL (0.70-1.20); EST Glomerular Filtration Rate 43 (>60); Glucose 192 mg/dL (70-99); Phosphorus 3.7 mg/dL (2.7-4.5); Potassium 4.2 mmol/L (3.3-5.1); Sodium Level 135 mmol/L (133-145)
== END | disposition home or self-care (01) ==
LOC: LAB 10:25
DX: N18.32 Chronic kidney disease, stage 3b (principal); N25.81 Secondary hyperparathyroidism of renal origin; Z79.899 Other long term (current) drug therapy
CPT/HCPCS: 36415; 80069; 83970; 85025